=== PATIENT | female | born 1990 | race Caucasian/White ===

== ENCOUNTER 2019-07-20 22:52 | Inpatient (IN) | payer BC ==
[~2019-07-20] VITALS: Ht 175.3 cm; Wt 171.9 kg
[2019-07-20 22:59] VITALS: BP 117/57
--- NOTE | 2019-07-20 23:05 | NUR ---
PT W/C ASSISTED TO ER BED 3
[2019-07-20] MEDS ORDERED: NACL 0.9% 1,000 ML IV ONE (23:20)
[2019-07-20] MEDS ORDERED: KETOROLAC 30 MG/ML VIAL IVP ONE (23:20)
--- NOTE | 2019-07-20 23:34 | NUR ---
28 Y/O FEMALE LACED IN BED 3 C/O VAGINAL BLEEDING. HX OF HORMONE IMBALANCE. BLOOD DRAWN AND SENT TO LAB. H/L PLACED IVF RUNNING. PT MEDICATED FOR DISCOMFORT.
--- NOTE | 2019-07-20 23:35 | NUR ---
Dr. Ny examining patient.
[2019-07-20 23:39] LABS: BASOPHILS % (AUTO) 0.6 % (0.0-2.0); EOSINOPHILS # (AUTO) 0.1 K/uL (0-0.4); EOSINOPHILS % (AUTO) 0.9 % (0.0-4.0); HEMATOCRIT 25.2 % (36-48); HEMOGLOBIN 8.3 g/dL (12.0-16.0); LYMPHOCYTES # (AUTO) 1.9 K/uL (2.5-16.5); LYMPHOCYTES % (AUTO) 27.9 % (20.5-51.1); MEAN CORPUSCULAR HEMOGLOBIN 25 pg (27-31); MEAN CORPUSCULAR HGB CONC 33 g/dL (33-37); MEAN CORPUSCULAR VOLUME 76.2 fL (80-94); MONOCYTES # (AUTO) 0.3 K/uL (0.8-1.0); MONOCYTES % (AUTO) 4.2 % (1.7-9.3); NEUTROPHILS # (AUTO) 4.4 K/uL (1.8-7.7); NEUTROPHILS % (AUTO) 66.4 % (42.2-75.2); PLATELET COUNT (AUTO) 212 K/uL (140-450); RED CELL DISTRIBUTION WIDTH 15.1 % (11.6-13.7); WHITE BLOOD COUNT (AUTO) 6.7 K/uL (4.8-10.8)
[2019-07-20 23:54] LABS: ALBUMIN 2.8 g/dL (3.4-5.0); ANION GAP 10.2 (8-16); CARBON DIOXIDE 28.2 mmol/L (21-32); CREATININE 0.8 mg/dL (0.6-1.3); POTASSIUM 3.4 mmol/L (3.5-5.1); PROTHROMBIN TIME 9.5 secs (10.8-13.4); TOTAL BILIRUBIN 0.1 mg/dL (0.0-1.0)
[2019-07-21] MEDS ORDERED: HYDROcodone/APAP 5/325 MG 1 TAB TAB PO PRN (01:50)
[2019-07-21] MEDS ORDERED: MORPHINE SULFATE 2 MG/ML SYR IVP PRN (01:50)
[2019-07-21] MEDS ORDERED: ACETAMINOPHEN 325 MG TAB PO PRN (01:50)
[2019-07-21] MEDS ORDERED: DOCUSATE SODIUM 100 MG GELCAP PO PRN (01:50)
[2019-07-21] MEDS ORDERED: LORazepam 2 MG/ML VIAL IM/IVP PRN (01:50)
[2019-07-21 04:12] LABS: BASOPHILS % (AUTO) 0.7 % (0.0-2.0); EOSINOPHILS % (AUTO) 0.3 % (0.0-4.0); HEMATOCRIT 24.9 % (36-48); HEMOGLOBIN 8.1 g/dL (12.0-16.0); LYMPHOCYTES # (AUTO) 1.1 K/uL (2.5-16.5); LYMPHOCYTES % (AUTO) 14.6 % (20.5-51.1); MEAN CORPUSCULAR HEMOGLOBIN 25 pg (27-31); MEAN CORPUSCULAR HGB CONC 33 g/dL (33-37); MONOCYTES # (AUTO) 0.2 K/uL (0.8-1.0); MONOCYTES % (AUTO) 2.9 % (1.7-9.3); NEUTROPHILS # (AUTO) 6.1 K/uL (1.8-7.7); NEUTROPHILS % (AUTO) 81.5 % (42.2-75.2); PLATELET COUNT (AUTO) 212 K/uL (140-450); RED BLOOD CELL COUNT(AUTO) 3.23 MIL/uL (4.20-5.40); RED CELL DISTRIBUTION WIDTH 15.1 % (11.6-13.7); WHITE BLOOD COUNT (AUTO) 7.5 K/uL (4.8-10.8)
[2019-07-21] MEDS ORDERED: POTASSIUM CHLORIDE 10 MEQ TABER PO ONE (04:20)
[2019-07-21 04:22] LABS: ANION GAP 7.7 (8-16); CARBON DIOXIDE 29.3 mmol/L (21-32); CREATININE 0.8 mg/dL (0.6-1.3)
--- NOTE | 2019-07-21 04:27 | NUR ---
Note undone in EDM - 07/21/19 at 0448 by ANALILIA Patient discharged with v/s stable. She states pain releived. 0/10. Edema to right lower leg reduced. Written and verbal after care instructions given and explained. Patient alert, oriented and verbalized understanding of instructions. Ambulatory with steady gait. All questions addressed prior to discharge. ID band removed. Patient advised to follow up with PMD. Rx of Motrin, Bactrim, Keflex, Tramadol given. Patient educated on indication of medication including possible reaction and side effects. Opportunity to ask questions provided and answered.
[2019-07-21 04:30] LABS: MAGNESIUM 1.8 mg/dL (1.8-2.4); PHOSPHORUS 3.2 mg/dL (2.5-4.9); THYROID STIMULATING HORMONE 2.12 uIU/mL (0.34-3.74)
[2019-07-21 04:32] LABS: BILIRUBIN,URINE NEGATIVE (NEGATIVE); BLOOD, URINE 3+ (NEGATIVE); LEUKOCYTE ESTERASE ,URINE 1+ (NEGATIVE); NITRITE, URINE NEGATIVE (NEGATIVE); UGLUCOSE NEGATIVE (NEGATIVE)
[2019-07-21] MEDS ORDERED: SODIUM FERRIC GLUCONATE 125 MG in NACL 0.9% 100 ML IV SCH (04:35)
[2019-07-21 04:36] LABS: APPEARANCE,URINE BLOODY (CLEAR); COLOR,URINE BLOODY (YELLOW)
[2019-07-21 04:39] LABS: PROTHROMBIN TIME 9.6 secs (10.8-13.4)
[2019-07-21 04:40] LABS: RBC,URINE TOO NUMEROUS TO COUN /HPF (0-5)
[2019-07-21 04:53] LABS: BARBITURATE, URINE NEG. ng/ml (NEG <=200); BENZODIAZEPINE, URINE NEG. ng/mL (NEG <=200); CANNABINOID, URINE NEG. ng/mL (NEG <=50); COCAINE, URINE NEG. ng/mL (NEG <=300); OPIATE, URINE NEG. ng/mL (NEG <=2000); PHENCYCLIDINE SCREEN,URINE NEG. ng/mL (NEG <=25)
--- NOTE | 2019-07-21 04:53 | NUR ---
PT TRANSFERRED TO ROOM AND REPORT GIVEN TO FLOOR NURSE. PT ALERT AND ORIENTED AND AMBULATES WELL. SKIN INTACT
[2019-07-21] MEDS ORDERED: cefTRIAXone 1,000 MG VIAL ONE (05:32)
[2019-07-21] MEDS: NACL 0.9% 1,000 ML IV SCH ×2 (05:58→22:45)
[2019-07-21 07:32] VITALS: BP 112/48
--- NOTE | 2019-07-21 07:36 | NUR ---
SHIFT REPORT RECEIVED FROM VACUUM PAN OPERATOR NURSE. PT IS IN BED RESTING AT THIS TIME. PT IS RESPONSIVE WHEN CALLED. NO COMPLAINS OF PAIN. CALL LIGHT IN REACH.
[2019-07-21] MEDS ORDERED: FERROUS SULFATE 325 MG TABEC PO SCH (08:00)
[2019-07-21] MEDS: LACTOBACILLUS RHAMNOSUS GG 1 EACH CAP PO SCH (08:44)
[2019-07-21] MEDS: ASCORBIC ACID 500 MG TAB PO SCH (08:45)
[2019-07-21] MEDS: ONDANSETRON 4 MG/2 ML VIAL IM/IVP PRN ×2 (08:45→16:32)
--- NOTE | 2019-07-21 09:00 | NUR ---
PT IS IN BED. PT EARLIER AMBULATED TO RESTROOM. PT SAID THAT THERE WAS NOT BLEEDING THIS TIME. WILL CONTINUE TO MONITOR. CALL LIGHT IN REACH.
[2019-07-21 10:50] LABS: BASOPHILS % (AUTO) 0.7 % (0.0-2.0); EOSINOPHILS % (AUTO) 0.5 % (0.0-4.0); HEMATOCRIT 23.3 % (36-48); HEMOGLOBIN 7.6 g/dL (12.0-16.0); LYMPHOCYTES # (AUTO) 1.5 K/uL (2.5-16.5); LYMPHOCYTES % (AUTO) 22.5 % (20.5-51.1); MEAN CORPUSCULAR HEMOGLOBIN 25 pg (27-31); MEAN CORPUSCULAR HGB CONC 33 g/dL (33-37); MEAN CORPUSCULAR VOLUME 76.8 fL (80-94); MONOCYTES # (AUTO) 0.2 K/uL (0.8-1.0); MONOCYTES % (AUTO) 3.6 % (1.7-9.3); NEUTROPHILS # (AUTO) 4.8 K/uL (1.8-7.7); NEUTROPHILS % (AUTO) 72.7 % (42.2-75.2); PLATELET COUNT (AUTO) 191 K/uL (140-450); RED BLOOD CELL COUNT(AUTO) 3.03 MIL/uL (4.20-5.40); WHITE BLOOD COUNT (AUTO) 6.5 K/uL (4.8-10.8)
[2019-07-21] MEDS ORDERED: medroxyPROGESTERone 10 MG TAB PO SCH (11:20)
--- NOTE | 2019-07-21 11:49 | NUR ---
PT IS RESTING IN BED. PT RESPONDS TO VERBAL STIMULI. ASKED PT IF SHE WENT TO THE REST ROOM. PT SAID THAT THERE WAS SOME BLEEDING NOTED. NO DISTRESS NOTED. WILL CONTINUE TO MONITOR. CALL LIGHT IN REACH.
[2019-07-21 12:00] VITALS: BP 109/45
[2019-07-21] MEDS: FERROUS SULFATE 325 MG TABEC PO SCH ×2 (12:26→16:33)
--- NOTE | 2019-07-21 14:55 | NUR ---
PT IS SLEEPING IN BED. PT RESPONSIVE WHEN CALLED. NO DISTRESS NOTED. NO COMPLAINS OF PAIN. WILL CONTINUE TO MONITOR. CALL LIGHT IN REACH.
[2019-07-21 16:00] VITALS: BP 96/44
--- NOTE | 2019-07-21 16:00 | NUR ---
PT HAD AN EPISODE OF EMESIS. FAMILY BE BEDSIDE. PT IS OTHERWISE STABLE. WILL CONTINUE TO MONITOR. CALL LIGHT IN REACH.
--- NOTE | 2019-07-21 18:50 | NUR ---
PT IS RESTING IN BED. PT SAYS SHE DOES NOT FEEL LIKE EATING. NO DISTRESS NOTED. WILL CONTINUE TO MONITOR. CALL LIGHT IN REACH.
--- NOTE | 2019-07-21 19:35 | NUR ---
RECEIVED FROM AM RN IN BED AWAKE AND ALERT. NO SOB. NO COMPLAINTS AT THIS TIME. RE-ORIENTED TO CALL LIGHT USE FOR ANY HELP SHE MAY NEED. ENCOURAGED TO CALL FOR ANY BLEEDING WHEN SHE GOES RESTROOM TO URINATE OR IF SHE FEELS SHE IS WET IF SHE IS HAVING ANY VAGINAL BLEEDING. "OK" IVF SITE INTACT AND NO INFILTRATION.
--- NOTE | 2019-07-21 19:35 | NUR ---
SHIFT REPORT GIVEN TO DYEING MACHINE BACK TENDER NURSE. PT IS IN STABLE CONDITION. CALL LIGHT IN REACH.
[2019-07-21] MEDS: medroxyPROGESTERone 10 MG TAB PO SCH (20:39)
--- NOTE | 2019-07-21 22:30 | NUR ---
NO COMPLAINTS DONE. SLEEPING WELL. WAKES UP EASILY WHEN TOUCHED. CALL LIGHT WITH IN REACH.
[2019-07-22] VITALS: BP 99/50
--- NOTE | 2019-07-22 00:18 | NUR ---
SLEEPING. NO RESTLESSNESS.
--- NOTE | 2019-07-22 02:59 | NUR ---
SLEEPING. CALL LIGHT WITH IN REACH AT BEDSIDE. NO RESTLESSNESS. NO COMPLAINTS DONE WHEN VITAL SIGNS TAKEN BY LABOR SPECIALIST.
--- NOTE | 2019-07-22 04:00 | NUR ---
AM PERSONAL HYGIENE RENDERED BY CNAS. NO COMPLAINTS DONE. CALL LIGHT WITH IN REACH.
[2019-07-22] MEDS: NACL 0.9% 1,000 ML IV SCH (04:41)
[2019-07-22 06:34] LABS: BASOPHILS % (AUTO) 0.3 % (0.0-2.0); EOSINOPHILS % (AUTO) 0.5 % (0.0-4.0); HEMATOCRIT 23.7 % (36-48); HEMOGLOBIN 7.7 g/dL (12.0-16.0); LYMPHOCYTES # (AUTO) 1.5 K/uL (2.5-16.5); LYMPHOCYTES % (AUTO) 26.5 % (20.5-51.1); MEAN CORPUSCULAR HEMOGLOBIN 25 pg (27-31); MEAN CORPUSCULAR HGB CONC 33 g/dL (33-37); MEAN CORPUSCULAR VOLUME 76.7 fL (80-94); MONOCYTES # (AUTO) 0.3 K/uL (0.8-1.0); MONOCYTES % (AUTO) 4.8 % (1.7-9.3); NEUTROPHILS # (AUTO) 3.9 K/uL (1.8-7.7); NEUTROPHILS % (AUTO) 67.9 % (42.2-75.2); PLATELET COUNT (AUTO) 204 K/uL (140-450); RED CELL DISTRIBUTION WIDTH 15.5 % (11.6-13.7); WHITE BLOOD COUNT (AUTO) 5.8 K/uL (4.8-10.8)
--- NOTE | 2019-07-22 06:40 | NUR ---
PT. AWAKE AT THIS TIME. STATED HER VAGINAL BLEEDING IS NOT THAT BAD YESTERDAY. ONLY SPOTTING. ABLE TO VERBALIZE NEEDS WELL. NO SOB. NO PAIN COMPLAINTS THIS SHIFT.
[2019-07-22 06:53] LABS: ANION GAP 7.1 (8-16); CARBON DIOXIDE 29.5 mmol/L (21-32); CREATININE 0.7 mg/dL (0.6-1.3); POTASSIUM 3.6 mmol/L (3.5-5.1)
[2019-07-22 07:02] LABS: PHOSPHORUS 2.3 mg/dL (2.5-4.9)
--- NOTE | 2019-07-22 07:20 | NUR ---
RECEIVED BEDSIDE REPORT FROM S3B MULTI SENSOR OPERATOR NURSE. PT IS ASLEEP, NO S/S OF ACUTE DISTRESS NOTED. PT IS ON ROOM AIR, SKIN IS INTACT. IV SITE R HAND 22 G, INFUSING NS 20 ML/HR. CALL LIGHT IS WITHIN REACH. WILL CONTINUE TO MONITOR.
[2019-07-22 08:00] VITALS: BP 108/48
--- NOTE | 2019-07-22 08:51 | NUR ---
PATIENT HAS BEEN SCREENED AND CATEGORIZED LOW NUTRITION RISK. PATIENT WILL BE SEEN WITHIN 7 DAYS OF ADMISSION. 07/27/[address]
--- NOTE | 2019-07-22 08:54 | NUR ---
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 I LOOKED INSIDE OF HER EARS, NO REDNESS OR DRAINAGE NOTED. DR ZUNIGA NOTIFIED, AND SHE WILL ASSESS PT'S EARS.
[2019-07-22] MEDS: ASCORBIC ACID 500 MG TAB PO SCH (10:11)
[2019-07-22] MEDS: LACTOBACILLUS RHAMNOSUS GG 1 EACH CAP PO SCH (10:11)
[2019-07-22] MEDS: FERROUS SULFATE 325 MG TABEC PO SCH ×3 (10:11→17:45)
[2019-07-22] MEDS: medroxyPROGESTERone 10 MG TAB PO SCH ×2 (10:12→20:56)
--- NOTE | 2019-07-22 10:22 | NUR ---
AM MEDS ADMINISTERED, PT TOLERATED WELL. PT C/O HEADACHE, TYLENOL ADMINISTERED.
--- NOTE | 2019-07-22 10:24 | NUR ---
PT'S AT BEDSIDE VISITING.
[2019-07-22 12:09] LABS: FOLIC ACID 6.6 ng/mL (>3.0)
[2019-07-22] MEDS: ONDANSETRON 4 MG/2 ML VIAL IM/IVP PRN (12:12)
--- NOTE | 2019-07-22 13:07 | NUR ---
PT JUST HAD ANOTHER EPISODE OF EMESIS, DESPITE GETTING ZOFRAN, SALTINES, AND ICE CHIPS EARLIER. DR ALCANTAR IS AWARE.
[2019-07-22] MEDS ORDERED: PROMETHAZINE 25 MG TAB PO PRN (13:10)
[2019-07-22] MEDS: DEXT 5% /NACL 0.9% 1,000 ML IV SCH ×2 (13:43→23:15)
[2019-07-22 14:48] LABS: BASOPHILS % (AUTO) 0.6 % (0.0-2.0); EOSINOPHILS % (AUTO) 0.6 % (0.0-4.0); HEMATOCRIT 23.6 % (36-48); HEMOGLOBIN 7.6 g/dL (12.0-16.0); LYMPHOCYTES # (AUTO) 1.9 K/uL (2.5-16.5); LYMPHOCYTES % (AUTO) 24.8 % (20.5-51.1); MEAN CORPUSCULAR HEMOGLOBIN 25 pg (27-31); MEAN CORPUSCULAR HGB CONC 32 g/dL (33-37); MEAN CORPUSCULAR VOLUME 77.1 fL (80-94); MONOCYTES # (AUTO) 0.3 K/uL (0.8-1.0); MONOCYTES % (AUTO) 4.1 % (1.7-9.3); NEUTROPHILS # (AUTO) 5.3 K/uL (1.8-7.7); NEUTROPHILS % (AUTO) 69.9 % (42.2-75.2); PLATELET COUNT (AUTO) 222 K/uL (140-450); RED BLOOD CELL COUNT(AUTO) 3.06 MIL/uL (4.20-5.40); RED CELL DISTRIBUTION WIDTH 15.5 % (11.6-13.7); WHITE BLOOD COUNT (AUTO) 7.6 K/uL (4.8-10.8)
[2019-07-22 16:00] VITALS: BP 95/45
--- NOTE | 2019-07-22 19:20 | NUR ---
ENDORSED PT TO NURSE CLINICIAN NURSE IN STABLE CONDITION
--- NOTE | 2019-07-22 19:30 | NUR ---
RECEIVED FROM AM RN IN BED SLEEPING. WOKE UP EASILY WHEN TOUCHED. ABLE TO VERBALIZE NEEDS WELL. ROM X 4. NO COMPLAINTS AT THIS TIME. DX. OF VAGINAL BLEEDING. ENCOURAGED TO CALL ME IF SHE GOES TO URINATE AND SHOW ME VAGINAL PADS TO ASSESS BLEEDING .CALL LIGHT WITH IN REACH. A/O X 4.
[2019-07-22] MEDS ORDERED: NEOMYCIN/POLYMYXIN/HC OT SOL. 10 ML BTL OT SCH (19:35)
--- NOTE | 2019-07-22 20:58 | NUR ---
P.O. MEDICATION TAKEN WELL. EATING DINNER TOO. ABLE TO VERBALIZE NEEDS WELL. A/O X 4. ROM X 4. CALL LIGHT WITH IN REACH.
--- NOTE | 2019-07-22 22:30 | NUR ---
AWAKE AND TALKING TOSOMEONE ON HER CELL PHONE. CALL LIGHT WITH IN REACH. ENCOURAGED TO CALL FOR ANY HELP SHE MAY NEED.
[2019-07-22 23:10] LABS: BASOPHILS % (AUTO) 0.8 % (0.0-2.0); EOSINOPHILS % (AUTO) 0.8 % (0.0-4.0); HEMATOCRIT 22.4 % (36-48); LYMPHOCYTES # (AUTO) 1.8 K/uL (2.5-16.5); LYMPHOCYTES % (AUTO) 30.8 % (20.5-51.1); MEAN CORPUSCULAR HEMOGLOBIN 25 pg (27-31); MEAN CORPUSCULAR HGB CONC 32 g/dL (33-37); MEAN CORPUSCULAR VOLUME 77.4 fL (80-94); MONOCYTES # (AUTO) 0.3 K/uL (0.8-1.0); MONOCYTES % (AUTO) 5.4 % (1.7-9.3); NEUTROPHILS # (AUTO) 3.6 K/uL (1.8-7.7); NEUTROPHILS % (AUTO) 62.2 % (42.2-75.2); PLATELET COUNT (AUTO) 207 K/uL (140-450); RED CELL DISTRIBUTION WIDTH 15.8 % (11.6-13.7); WHITE BLOOD COUNT (AUTO) 5.8 K/uL (4.8-10.8)
[2019-07-23 00:02] VITALS: BP 95/40
[2019-07-23 00:02] LABS: HEMOGLOBIN 7.1 g/dL (12.0-16.0)
--- NOTE | 2019-07-23 00:10 | NUR ---
SLEEPING AT THIS TIME. NO NOTED N/V . SEEN EATING HER DINNER WELL THIS SHIFT. NO PAIN COMPLAINTS DONE YET.
--- NOTE | 2019-07-23 04:30 | NUR ---
CHECKED ON PT. SLEEPING. CALL LIGHT WITH IN REACH. NO RESTLESSNESS NOTED.
[2019-07-23 06:18] LABS: BASOPHILS % (AUTO) 0.8 % (0.0-2.0); EOSINOPHILS % (AUTO) 0.7 % (0.0-4.0); HEMATOCRIT 23.8 % (36-48); HEMOGLOBIN 7.7 g/dL (12.0-16.0); LYMPHOCYTES # (AUTO) 1.5 K/uL (2.5-16.5); LYMPHOCYTES % (AUTO) 25.9 % (20.5-51.1); MEAN CORPUSCULAR HEMOGLOBIN 25 pg (27-31); MEAN CORPUSCULAR HGB CONC 32 g/dL (33-37); MEAN CORPUSCULAR VOLUME 77.1 fL (80-94); MONOCYTES # (AUTO) 0.2 K/uL (0.8-1.0); MONOCYTES % (AUTO) 4.3 % (1.7-9.3); NEUTROPHILS % (AUTO) 68.3 % (42.2-75.2); PLATELET COUNT (AUTO) 208 K/uL (140-450); RED BLOOD CELL COUNT(AUTO) 3.09 MIL/uL (4.20-5.40); RED CELL DISTRIBUTION WIDTH 15.7 % (11.6-13.7); WHITE BLOOD COUNT (AUTO) 5.8 K/uL (4.8-10.8)
--- NOTE | 2019-07-23 06:19 | NUR ---
SLEPT WELL THIS SHIFT. PRESENTLY AWAKE AND WATCHING SOMETHING FROM HER CELL PHONE. SEEN PT. AMBULATING WELL. CAME FROM RESTROOM TO URINATE. NO PAIN COMPLAINTS DONE THIS SHIFT AND NO NAUSEA COMPLAINTS DONE. PT. STATED THAT SHE HAS VERY LITTLE BLOOD IN HER PADS. JUST SPOTTING. WILL ENDORSE TO AM RN FOR CONTINUITY OF CARE.
[2019-07-23 06:27] LABS: ANION GAP 8.7 (8-16); CARBON DIOXIDE 28.3 mmol/L (21-32); CREATININE 0.7 mg/dL (0.6-1.3)
[2019-07-23 06:42] LABS: MAGNESIUM 2.1 mg/dL (1.8-2.4); PHOSPHORUS 2.6 mg/dL (2.5-4.9)
--- NOTE | 2019-07-23 07:22 | NUR ---
RECEIVED IN BED. ALERT AND ORIENTED X 4. NO C/O PAIN, NO SOB, AFEBRILE. WITH IV SITE ON RIGHT HAND 22G ON D5 NS 100ML/HR INFUSING WELL. CALL LIGHT WITHIN REACH. WILL CONTINUE TO MONITOR
[2019-07-23 08:00] VITALS: BP 118/40
[2019-07-23] MEDS ORDERED: FER325 PO (09:16)
[2019-07-23] MEDS ORDERED: LACT10CA PO (09:16)
[2019-07-23] MEDS ORDERED: MEDR10TA33 PO (09:16)
[2019-07-23] MEDS ORDERED: VITC500 PO (09:16)
[2019-07-23] MEDS ORDERED: CEPH250C16 PO (09:18)
[2019-07-23] MEDS: LACTOBACILLUS RHAMNOSUS GG 1 EACH CAP PO SCH (09:25)
[2019-07-23] MEDS: FERROUS SULFATE 325 MG TABEC PO SCH ×2 (09:26→12:14)
[2019-07-23] MEDS: ASCORBIC ACID 500 MG TAB PO SCH (09:26)
[2019-07-23] MEDS: medroxyPROGESTERone 10 MG TAB PO SCH (09:26)
[2019-07-23] MEDS: NEOMYCIN/POLYMYXIN/HC OT SOL. 10 ML BTL OT SCH ×2 (09:27→12:15)
[2019-07-23] MEDS: DEXT 5% /NACL 0.9% 1,000 ML IV SCH (09:32)
--- NOTE | 2019-07-23 09:35 | NUR ---
DUE MORNING MEDS GIVEN. TOLERATED WELL. WILL CONT TO MONITOR
--- NOTE | 2019-07-23 12:15 | NUR ---
DU MEDS IRON AND CORTISPORIN EAR DROPS GIVEN ORDERED. TOLERATED WELL
--- NOTE | 2019-07-23 12:45 | NUR ---
DISCHARGED PT TO HOME ACCOMPANIED BY . ALERT AND ORIENTED X4, NO C/O PAIN, NO SOB. DISCHARGE INSTRUCTIONS GIVEN AND PRESCRIPTION. PT VERBALIZED UNDERSTANDING. IV LINES AND ID BANDS REMOVED. STABLE AT THIS TIME
== END 2019-07-23 12:45 | disposition home or self-care (01) | DRG 73 ==
LOC: MED 22:52 → MTU 07-21 01:54
PROVIDERS: ADMIT General Practice; ATTEND General Practice
DX: G90.8 Other disorders of autonomic nervous system (principal); E43 Unspecified severe protein-calorie malnutrition; Z68.43 Body mass index [BMI] 50.0-59.9, adult; E87.6 Hypokalemia; R73.9 Hyperglycemia, unspecified; N93.9 Abnormal uterine and vaginal bleeding, unspecified; E66.9 Obesity, unspecified; N92.0 Excessive and frequent menstruation with regular cycle; Z71.3 Dietary counseling and surveillance; D50.9 Iron deficiency anemia, unspecified; H92.03 Otalgia, bilateral; R31.9 Hematuria, unspecified
CPT/HCPCS: 36415; 71045; 76856; 80048; 80053; 80305; 81001; 81025; 82607; 82728; 82746; 83036; 83540; 83690; 83735; 84100; 84443; 85025; 85045; 85610; 85730; 86886; 86900; 86901; 87081; 87086; 96361; 96374; 99285; J0696; J1885; J2405; J7030; J7042; J7060; Q0092; Q0169